=== PATIENT | female | born 1970 | race Native Hawaiian/Other Pacific Islander ===

== ENCOUNTER 2022-08-26 11:20 | Emergency (ER) | payer OTHER, SELFPAY ==
[2022-08-26 11:23] VITALS: BP 129/72; PULSE 71; RESP 16; TEMP 36.9; O2SAT 96; BMI 25.4
--- NOTE | 2022-08-26 11:31 | DI.RAD.S_ITS ---
PROCEDURE: XR ANKLE LT MIN 3V INDICATIONS: fall/swelling TECHNIQUE: 3 views of the ankle were acquired. COMPARISON: None. FINDINGS: Bones: There is a minimally displaced fracture seen involving distal fibula. There is an additional 3 mm fracture fragment seen distal to the lateral malleolus, which may be related to an acute fracture fragment or a remote fracture fragment. Incidental note is made of an accessory ossicle, an os trigonum. No suspicious lytic or blastic lesions are seen. Soft tissues: Soft tissue swelling is seen, particularly laterally. IMPRESSION: Minimally displaced fibular fracture, with associated soft tissue swelling. A displaced 3 mm fracture fragment is seen, which is age indeterminate. Dictated by: Tee Maza M.D. on 08/26/2022 at 10:59 Approved by: Tee Maza M.D. on 08/26/2022 at 11:00
--- NOTE | 2022-08-26 13:14 | ED.LOWEXIN ---
HPI - Extremity Injury (Lower) <NAILA Tabares - Last Filed: 08/26/22 14:05> General Chief Complaint: Extremity Injury, Lower Stated Complaint: fell, lt ankle is swelling Time Seen by Provider: 08/26/22 13:13 Source: patient Mode of arrival: Ambulatory History of Present Illness HPI Narrative: This is a 52-year-old female presents to the emergency department after she rolled her left ankle this morning on a run, states that she is a runner at baseline and has had swelling of the lateral aspect of her ankle and pain with ambulation. She denies any numbness or tingling, denies prior history of injury to this ankle. States that she is very active and stepped on a rock which caused her foot to invert and then felt worse pain immediately. She is able to bear weight, denies any range of motion deficit. Related Data Previous Rx's Medication Instructions Recorded tramadol 50 mg tablet 50 mg PO BID PRN pain #14 tabs 08/26/22 Allergies Allergy/AdvReac Type Severity Reaction Status Date / Time No Known Drug Allergies Allergy Verified 08/26/22 13:57 Review of Systems <NAILA Tabares - Last Filed: 08/26/22 14:05> Review of Systems Narrative: Review of systems is negative for acute abnormalities unless otherwise noted in HPI Patient History <NAILA Taabres - Last Filed: 08/26/22 14:05> Social History Smoking Status: Never smoker Smoking Status: Never smoker Substance Use Type: does not use Exam <NAILA Tabares - Last Filed: 08/26/22 14:05> Narrative Exam Narrative: Reviewed vitals signs and nursing notes. General: cooperative, comfortable, in no acute distress, well groomed MSK: moves all extremities, neurovascularly intact, no weakness, normal tone, left ankle with edema to the lateral aspect, tenderness over the lateral malleolus, CFL, and ATFL, PT and DP pulses are 2+, flexion extension intact and movement limited only due to pain. Brisk cap refill Skin: brisk capillary refill, without pallor or erythema Neuro: normal speech and cognition, A&O x3, ambulatory, clear speech Psych: mental status is grossly normal, congruent mood, normal affect, pleasant and cooperative Initial Vital Signs Initial Vital Signs: Vital Signs Temperature 98.4 F 08/26/22 11:23 Pulse Rate 71 08/26/22 11:23 Respiratory Rate 16 08/26/22 11:23 Blood Pressure 129/72 08/26/22 11:23 Pulse Oximetry 96 08/26/22 11:23 Oxygen Delivery Method 08/26/22 11:23 <Barrera Hernandez MD - Last Filed: 08/26/22 16:37> Initial Vital Signs Initial Vital Signs: Vital Signs Temperature 98.4 F 08/26/22 11:23 Pulse Rate 71 08/26/22 11:23 Respiratory Rate 16 08/26/22 11:23 Blood Pressure 129/72 08/26/22 11:23 Pulse Oximetry 96 08/26/22 11:23 Oxygen Delivery Method 08/26/22 11:23 Course <NAILA Tabares - Last Filed: 08/26/22 14:05> Orders Ordered: ED Orders 08/26/22 11:31 XR ankle LT min 3V Stat Discontinued Medications Ketorolac Tromethamine (Ketorolac 10 Mg Tablet) 10 mg PO NOW ONE Stop: 08/26/22 13:38 Last Admin: 08/26/22 13:56 Dose: 10 mg Documented By: TATYANA Tramadol HCl (Tramadol 50 Mg Tablet) 50 mg PO NOW ONE Stop: 08/26/22 13:38 Last Admin: 08/26/22 13:57 Dose: 50 mg Documented By: TATYANA Vital Signs Vital signs: Vital Signs - 8 hr 08/26/22 11:23 Temperature 98.4 F Pulse Rate 71 Respiratory Rate 16 Blood Pressure 129/72 Pulse Oximetry 96 Oxygen Delivery Method Room Air <Barrera Hernandez MD - Last Filed: 08/26/22 16:37> Orders Ordered: ED Orders 08/26/22 11:31 XR ankle LT min 3V Stat Discontinued Medications Ketorolac Tromethamine (Ketorolac 10 Mg Tablet) 10 mg PO NOW ONE Stop: 08/26/22 13:38 Last Admin: 08/26/22 13:56 Dose: 10 mg Documented By: TATYANA Tramadol HCl (Tramadol 50 Mg Tablet) 50 mg PO NOW ONE Stop: 08/26/22 13:38 Last Admin: 08/26/22 13:57 Dose: 50 mg Documented By: CTS Vital Signs Vital signs: Vital Signs - 8 hr 08/26/22 11:23 Temperature 98.4 F Pulse Rate 71 Respiratory Rate 16 Blood Pressure 129/72 Pulse Oximetry 96 Oxygen Delivery Method Room Air MDM - Extremity Injury (Lower) <Ping Rice [employer] - Last Filed: 08/26/22 14:05> Imaging Data Extremity x-ray #1: Radiologist's Impression: PROCEDURE:? XR ANKLE LT MIN 3V ? INDICATIONS:? fall/swelling ? TECHNIQUE:? 3 views of the ankle were acquired.? ? COMPARISON:? None. ? FINDINGS:? ? Bones:? There is a minimally displaced fracture seen involving distal fibula.? There is an additional 3 mm fracture fragment seen distal to the lateral malleolus, which may be related to an acute fracture fragment or a remote fracture fragment. ? Incidental note is made of an accessory ossicle, an os trigonum.? No suspicious lytic or blastic lesions are seen. ? Soft tissues:? Soft tissue swelling is seen, particularly laterally. ? ? IMPRESSION:? Minimally displaced fibular fracture, with associated soft tissue swelling.? ? ? A displaced 3 mm fracture fragment is seen, which is age indeterminate. ? Dictated by: Tee Maza M.D. on 08/26/2022 at 10:59 ? ? Approved by: Tee Maaz M.D. on 08/26/2022 at 11:00 ? [facility] Narrative Medical decision making narrative: This is a 52-year-old female who presents to the emergency department after an inversion injury with her left foot after she stepped on a rock while running today. She is athletic and runs daily, x-ray today shows a minimally displaced fibular fracture with associated soft tissue swelling with an additional displaced 3 mm fracture fragment seen, age indeterminate. No evidence of bony tenderness to the medial malleolus, base of the 5th metatarsal, or pain over the navicular bone. Consulted with Dr. Ram who is here for another patient and she recommended a boot, ambulation as tolerated, and follow-up at [facility]. Contact information for the clinic was provided, encouraged anti-inflammatories, tramadol as needed and Tylenol for pain with ice, elevation and rest. Patient is appropriate and amenable to discharge home. Vital signs are stable on repeat examination is unremarkable. Patient has been informed of results. Patient has been given strict return to ER precautions for any new or worsening symptoms. Patient understands to follow up closely with outpatient providers as instructed. Patient understands plan and agrees to discharge home. All questions and concerns answered at this time. Discharge Plan Departure Patient Disposition: Home Clinical Impression: Fracture of distal end of fibula Qualifiers: Encounter type: initial encounter Fracture type: closed Fracture morphology: unspecified fracture morphology Laterality: left Qualified Code(s): S82.832A - Other fracture of upper and lower end of left fibula, initial encounter for closed fracture Instructions: Ankle Fracture, How to Apply an Elastic Wrap on Ankle Activity Restrictions/Additional Instructions: *You have been diagnosed with minimally displaced distal fibular fracture with soft tissue swelling. The secondary fracture fragment is 3 mm and is age indeterminate. Please wear this walking boot while you are ambulating as tolerated. You can use crutches to off weight this ankle for pain purposes. Please call and schedule an appointment as [facility] for follow-up regarding your distal fibular fracture. I hope this heals well, congratulations on your runs, what a cool thing to do. Please take 600 mg of ibuprofen every 6 hours as needed, take 650 mg of Tylenol with that if your pain is significant, elevate and ice as much as possible, especially this week. Please take the tramadol in addition to those medications if your pain is worse, you can use topical diclofenac gel which is available [id number] which may help with the swelling to. I hope you are back to running soon. *What to do: *Please continue to take your regular medications as directed. [x ] New medication prescriptions sent to your pharmacy: [ [facility]] [ ] New medication written as a paper prescription [ ] No new medications given *Please follow up with your primary care provider in 2-3 days, call for an appointment. Let them know you were seen in the Emergency Department and that we asked that you be seen for follow-up. We will electronically transmit a record of today's note if your PCP is in our system *If you do not have a primary care provider please contact [phone] to establish care with one of the [facility] primary care providers. *Return to Emergency Department if you should have any new, worsening, or concerning symptoms, such as [fever greater than 101F, chills, worsening pain, persistent vomiting or other bothersome symptoms]. Prescriptions: New tramadol 50 mg tablet 50 mg PO BID PRN (Reason: pain) Qty: 14 0RF Referrals: [facility] [Provider Group] Margi Umanzor MD [Physician] - Visit Report Forms: Patient Portal/API <Barrera Hernandez MD - Last Filed: 08/26/22 16:37> Cosign ED Attending Cosnikkyature Attestation: I was immediately available in the department for consultation. ?This documentation has been reviewed and I agree with assessment and plan. Supervised by Barrera Hernandez MD
[2022-08-26] MEDS: KETOROLAC 10 MG TABLET PO (13:56)
[2022-08-26] MEDS: TRAMADOL 50 MG TABLET PO (13:57)
--- NOTE | 2022-08-26 14:04 | PC.NURSE ---
pt medicated. anxious to leave. declined crutches.
== END 2022-08-26 14:05 | disposition home or self-care (01) ==
PROVIDERS: Emergency Provider Nurse Practitioner Critical Care Medicine
DX: S82.832A Other fracture of upper and lower end of left fibula, initial encounter for closed fracture (principal); X50.1XXA Overexertion from prolonged static or awkward postures, initial encounter
CPT/HCPCS: 73610; 99283